=== PATIENT | male | born 1965 | race Caucasian/White ===

== ENCOUNTER 2022-11-03 18:31 | Inpatient (IN) | payer MEDICAID ==
[~2022-11-03] VITALS: Ht 180.3 cm; Wt 74.4 kg
[2022-11-03 19:22] VITALS: BP_SYST 156
--- NOTE | 2022-11-03 19:28 | NUR ---
Patient triaged and placed in waiting room. VSS and patient appears in no acute distress at this time. Accompanied by FAMILY, awaiting available bed, and MD notified of need for MSE.
--- NOTE | 2022-11-03 20:35 | NUR ---
ER MD Marlow at bedside.
--- NOTE | 2022-11-03 20:35 | NUR ---
Patient to ER bed JUAN to gown for evaluation. Side rails up. Report given to ODESSA NGUYEN.
--- NOTE | 2022-11-03 20:40 | NUR ---
Received report from PATRICK Lyon; assuming patient cares at this time.
[2022-11-03] MEDS ORDERED: MORPHINE 4 MG INJ. 4 MG/ML VIAL IVP ONE ×2 (20:45→22:15)
[2022-11-03] MEDS ORDERED: ONDANSETRON HCL 4 MG/2 ML VIAL IVP ONE (20:45)
--- NOTE | 2022-11-03 20:50 | NUR ---
Patient presents to ED from home with c/o left sided inguinal hernia [id number]. Patient reports pain 10/10 at this time. Patient A/Ox4, VSS, ambulatory, resp even and unlabored. Patient is a Swedish speaker. Patient states "I've had this hernia for about 8 months and it's been hurting but today was much worse. I went to my doctor today and he told me to come to the emergency room because of the pain."Nad noted at this time. ER MD Fitzpatrick made aware.
--- NOTE | 2022-11-03 21:05 | NUR ---
# 20 gauge angiocath placed to right wrist. Use of asceptic technique. Opsite placed over site. Blood return noted. Flushed with 10 cc of normal saline. No evidence of infiltration noted. Patient tolerated well.
--- NOTE | 2022-11-03 21:10 | NUR ---
Lab at bedside.
[2022-11-03 21:24] LABS: BASOPHILS % (AUTO) 0.4 % (0.0-2.0); EOSINOPHILS # (AUTO) 0.1 K/uL (0.0-0.4); EOSINOPHILS % (AUTO) 1.2 % (0.0-4.0); HEMOGLOBIN 14.3 g/dL (14.0-18.0); LYMPHOCYTES # (AUTO) 1.7 K/uL (1.0-5.5); LYMPHOCYTES % (AUTO) 30.9 % (20.5-51.5); MEAN CORPUSCULAR HEMOGLOBIN 31 pg (27-31); MEAN CORPUSCULAR HGB CONC 34 % (32-36); MEAN CORPUSCULAR VOLUME 91 fL (79.0-98.0); MONOCYTES # (AUTO) 0.5 K/uL (0.0-1.0); MONOCYTES % (AUTO) 9.4 % (1.7-9.3); NEUTROPHILS # (AUTO) 3.2 K/uL (1.8-7.7); NEUTROPHILS % (AUTO) 58.1 % (40.0-70.0); PLATELET COUNT (AUTO) 230 K/uL (130-430); RED CELL DISTRIBUTION WIDTH 12.8 % (9.0-15.0); WHITE BLOOD COUNT (AUTO) 5.5 K/uL (4.8-10.8)
[2022-11-03] MEDS ORDERED: IOHEXOL 350 mgI/mL, 150 ML INFUS..BTL IV ONE (21:25)
--- NOTE | 2022-11-03 21:41 | NUR ---
Patient taken to CT via gurney; accompanied by radiology.
[2022-11-03 21:48] LABS: CALCIUM 8.9 mg/dL (8.4-11.0); CREATININE 0.95 mg/dL (0.55-1.30)
[2022-11-03 21:55] LABS: ALBUMIN 4.1 g/dL (3.4-4.8); TOTAL BILIRUBIN 0.5 mg/dL (0.0-1.0)
--- NOTE | 2022-11-03 22:00 | NUR ---
Patient back from CT via gurney; accompanied by radiology.
--- NOTE | 2022-11-03 23:38 | NUR ---
Patient resting in bed with safety precautions in place. Nad noted at this time.
[2022-11-04] MEDS ORDERED: cefTRIAXone 1 GM in D5W 50 ML IV ONE (00:30)
[2022-11-04] MEDS ORDERED: cefTRIAXone 1 GM VIAL ONE (01:28)
--- NOTE | 2022-11-04 01:47 | NUR ---
Med rec done at this time. Per patient he does not take any medications at this time.
--- NOTE | 2022-11-04 02:09 | NUR ---
Report given to PATRICK Caceres; assuming patient cares at this time.
[2022-11-04] MEDS ORDERED: POTASSIUM CHLORIDE 20 MEQ TAB.PRT.SR PO PRN (02:15)
[2022-11-04] MEDS ORDERED: MAGNESIUM SULFATE 50 ML IV PRN (02:15)
[2022-11-04] MEDS ORDERED: ONDANSETRON HCL 4 MG/2 ML VIAL IVP PRN ×2 (02:15→21:00)
[2022-11-04] MEDS ORDERED: DOCUSATE SODIUM 100 MG CAPSULE PO PRN (02:15)
[2022-11-04] MEDS ORDERED: MUPIROCIN 2% TOPICAL OINTMENT 22 GM NS PRN (02:15)
[2022-11-04] MEDS ORDERED: ACETAMINOPHEN 325 MG TABLET PO PRN (02:15)
[2022-11-04] MEDS ORDERED: MORPHINE 2 MG/ML INJ. SYRINGE IVP PRN (02:15)
[2022-11-04] MEDS: NACL 0.9% 1,000 ML IV SCH ×3 (02:30→23:31)
--- NOTE | 2022-11-04 02:34 | NUR ---
Admit bed requested Patient will be admitted to care of . Admitted to MED SURG unit. Diagnosis POSSIBLE INCARCERATED HERNIA Inpatient (Yes or No) YES Observation (Yes or No) NO Orientation concerns or request close to nursing station (Yes or No) NO Covid Status NEGATIVE On vent or bipap NO Isolation requirements NO Needs a sitter NO From Home (Yes or if No enter name of facility) YES Requires Dialysis (Yes or No) NO Med Rec Completed (Yes of No) YES BY NURSE SAXENA(NO ACTIVE HOME MEDICATION)
--- NOTE | 2022-11-04 07:20 | NUR ---
Received report from outgoing nurse PATRICK Caceres. Received pt awake and alert, no s/s of discomfort noted. Pt has a 20g right hand, patent and intact, no s/s of infiltration noted. Vitals taken.
[2022-11-04] MEDS ORDERED: IBUP-1970 PO (08:03)
[2022-11-04] MEDS ORDERED: ALPH1TAB (08:07)
--- NOTE | 2022-11-04 08:44 | NUR ---
Patient will be admitted to care of Dr White. Admitted to MS unit. Will go to room 126A. Belongings list completed. Complete and up to date summary report printed. SBAR report to be given at bedside with opportunity for questions.
[2022-11-04] MEDS: MORPHINE 2 MG/ML INJ. SYRINGE IVP PRN ×2 (12:36→17:06)
[2022-11-04 16:20] VITALS: BP_SYST 156
[2022-11-04] MEDS ORDERED: FLU VACC QS2022-23(6MOS UP)/PF 0.5 ML/SYR SYRINGE I.M. PRN (16:45)
[2022-11-04] MEDS ORDERED: LR 1,000 ML IV.SOLN IV ONE (18:00)
[2022-11-04] MEDS ORDERED: NS IRRIG SOLN 1000 ML IR ONE (18:00)
[2022-11-04] MEDS ORDERED: GLYCOPYRROLATE 0.2 MG/ML VIAL ONE (18:00)
[2022-11-04] MEDS ORDERED: CEFAZOLIN 2 GM IVPB PREMIX 50 ML IV ONE (18:00)
[2022-11-04] MEDS ORDERED: BUPIVACAINE /EPINEPHRINE/PF 0.5% 30 ML VIAL INJ ONE (18:00)
[2022-11-04] MEDS ORDERED: SEVOFLURANE 15 MIN GAS INH ONE (18:00)
[2022-11-04] MEDS ORDERED: KETOROLAC TROMETHAMINE 30 MG VIAL ONE (18:00)
[2022-11-04] MEDS ORDERED: fentaNYL CITRATE/PF 100 MCG/2 ML AMP ONE ×2 (18:00→20:36)
[2022-11-04] MEDS ORDERED: ROCURONIUM BROMIDE 10 MG/ML (ZEMURON) ONE (18:00)
[2022-11-04] MEDS ORDERED: PHENYLEPHRINE HCL 10 MG/ML VIAL (NEOSYNEPHRINE) ONE (18:00)
[2022-11-04] MEDS ORDERED: ONDANSETRON HCL 4 MG/2 ML VIAL ONE (18:00)
[2022-11-04] MEDS ORDERED: PROPOFOL 200MG/ 20ML VIAL (DIPRIVAN) IV ONE (18:00)
[2022-11-04 20:00] LABS: INR 1.2 (0.80-1.20); PROTHROMBIN TIME 12.1 SECS (9.5-12.5)
[2022-11-04 20:01] LABS: BILIRUBIN,URINE NEGATIVE (NEGATIVE); BLOOD, URINE NEGATIVE (NEGATIVE); CLARITY/URINE CLEAR (CLEAR); COLOR,URINE YELLOW (YELLOW); GLUCOSE,URINE NEGATIVE (NEGATIVE); KETONES,URINE TRACE (NEGATIVE); LEUKOCYTE ESTERASE ,URINE NEGATIVE (NEGATIVE); NITRITE, URINE NEGATIVE (NEGATIVE); PROTEIN URINE NEGATIVE (NEGATIVE); UROBILINOGEN,URINE 0.2 (0.2-1.0)
[2022-11-04] MEDS ORDERED: METOCLOPRAMIDE HCL 10 MG/2 ML VIAL IVP PRN (21:00)
[2022-11-04] MEDS ORDERED: fentaNYL CITRATE/PF 100 MCG/2 ML AMP IVP PRN ×2 (21:00)
--- NOTE | 2022-11-04 23:00 | NUR ---
CONSULTATION FOR DR KUNZ FOR CONSULT OF EVALUATE FOR SURGERY AND INCARCERATED HERNIA ORDER BY DR NAE KUNZ IS AWARE AND HAS CAME TO SEE PATIENT
--- NOTE | 2022-11-04 23:08 | NUR ---
PT RECEIVED IN ROOM, S/P LEFT INGUINAL REPAIR. SURGICAL SITE INTACT CLEAN AND DRY. PT CURRENTLY DENIES ANY PAIN. CURRENTLY ON 2L VIA NC, WITH 98% SATURATION
[2022-11-05] VITALS (9 sets, daily range): BP systolic 122–148
--- NOTE | 2022-11-05 05:32 | NUR ---
pt resting in bed, adequate urine output. continued use of IS reinforced. no acute distress noted
--- NOTE | 2022-11-05 08:00 | NUR ---
OPENING NOTES PATIENT IS AOX4. NO SS OF DISTRESS NOTED. BREATHING IS EVEN AND NONLABORED, ON 2 L O2 VIA NC. NO SOB NOTED. VITAL SIGNS OBTAINED, DOCUMENTED. IV APPEARS TO BE PATENT. NO REDDENS AND OR SWELLING. IVF RUNNING. PATIENT DENIES PAIN. PATIENT IS EATING BREAKFAST. BED IS LOCKED, ALARM ON, AND AT LOWEST POSITION. CALL LIGHT WITHIN REACH.
[2022-11-05 10:11] LABS: BASOPHILS % (AUTO) 0.3 % (0.0-2.0); EOSINOPHILS # (AUTO) 0.1 K/uL (0.0-0.4); EOSINOPHILS % (AUTO) 0.8 % (0.0-4.0); HEMATOCRIT 39.4 % (36-54); HEMOGLOBIN 13.3 g/dL (14.0-18.0); LYMPHOCYTES # (AUTO) 0.8 K/uL (1.0-5.5); LYMPHOCYTES % (AUTO) 12.7 % (20.5-51.5); MEAN CORPUSCULAR HEMOGLOBIN 31 pg (27-31); MEAN CORPUSCULAR HGB CONC 34 % (32-36); MEAN CORPUSCULAR VOLUME 92 fL (79.0-98.0); MONOCYTES # (AUTO) 0.5 K/uL (0.0-1.0); NEUTROPHILS # (AUTO) 5.1 K/uL (1.8-7.7); NEUTROPHILS % (AUTO) 78.2 % (40.0-70.0); PLATELET COUNT (AUTO) 170 K/uL (130-430); RED BLOOD CELL COUNT(AUTO) 4.27 MIL/uL (4.2-6.2); RED CELL DISTRIBUTION WIDTH 12.7 % (9.0-15.0); WHITE BLOOD COUNT (AUTO) 6.6 K/uL (4.8-10.8)
[2022-11-05 10:34] LABS: CREATININE 0.77 mg/dL (0.55-1.30)
[2022-11-05] MEDS: DOCUSATE SODIUM 250 MG CAPSULE PO SCH ×2 (11:00→20:40)
[2022-11-05] MEDS: NACL 0.9% 1,000 ML IV SCH (11:01)
[2022-11-05] MEDS: traMADol HCL HCL 50 MG TABLET (ULTRAM) PO PRN ×2 (11:09→16:58)
--- NOTE | 2022-11-05 12:00 | NUR ---
NOTES PATIENT IS EATING LUNCH. NO SS OF DISTRESS NOTED. DENIES PAIN. PATIENT IS STABLE AT THIS TIME. ALL SAFETY PRECAUTIONS IN PLACE AND CALL LIGHT WITHIN REACH.
--- NOTE | 2022-11-05 15:45 | NUR ---
NOTES PATIENT AMBULATING WITH WALKER. DENIES SEVERE PAIN. TOLERATING WELL. NO SOB NOTED. SAFETY PRECAUTIONS IN PLACE AND CALL LIGHT WITHIN REACH.
[2022-11-05] MEDS ORDERED: BISACODYL 5 MG TABLET.DR (DULCOLAX) PO ONE (16:15)
--- NOTE | 2022-11-05 17:11 | NUR ---
NOTES PATIENT REQUEST PAIN MEDICATION. NEW IV INSERTED 22 G TO LFA. PATIENT STATED WANTED TO CHANGE IV LOCATIONS. BLOOD RETURN. FLUSHES WELL. PATENT.SAFETY PRECAUTIONS IN PLACE AND CALL LIGHT WITHIN REACH. FAMILY AT BEDSIDE.
--- NOTE | 2022-11-05 19:25 | NUR ---
CLOSING NOTES PATIENT FINISHED EATING DINNER. NO SS OF DISTRESS NOTED. BREATHING IS EVEN AND NONLABORED, ON ROOM AIR. NO SOB NOTED. AMBULATING WITH WALKER IN ROOM. NO FACIAL GRIMACE NOTED. IV PATENT. DENIES PAIN. BED IS LOCKED, ALARM ACTIVE, AND AT LOWEST POSITION. CALL LIGHT WITHIN REACH.PATIENT IS STABLE AND ALL NEEDS MET. REPORT GIVEN TO PATRICK LLOYD.
--- NOTE | 2022-11-06 00:52 | NUR ---
pt resting in bed, no acute distress noted. pt was covered with 4 units of insulin for bs of 204. will continue to monitor.
[2022-11-06 07:10] LABS: CALCIUM 8.2 mg/dL (8.4-11.0); CREATININE 0.83 mg/dL (0.55-1.30)
[2022-11-06 07:36] LABS: BASOPHILS % (AUTO) 0.1 % (0.0-2.0); EOSINOPHILS % (AUTO) 0.3 % (0.0-4.0); HEMATOCRIT 38.6 % (36-54); HEMOGLOBIN 13.3 g/dL (14.0-18.0); LYMPHOCYTES # (AUTO) 1.2 K/uL (1.0-5.5); LYMPHOCYTES % (AUTO) 15.4 % (20.5-51.5); MEAN CORPUSCULAR HEMOGLOBIN 32 pg (27-31); MEAN CORPUSCULAR HGB CONC 35 % (32-36); MEAN CORPUSCULAR VOLUME 91 fL (79.0-98.0); MONOCYTES # (AUTO) 0.9 K/uL (0.0-1.0); MONOCYTES % (AUTO) 12.2 % (1.7-9.3); NEUTROPHILS # (AUTO) 5.5 K/uL (1.8-7.7); PLATELET COUNT (AUTO) 174 K/uL (130-430); RED BLOOD CELL COUNT(AUTO) 4.24 MIL/uL (4.2-6.2); RED CELL DISTRIBUTION WIDTH 12.7 % (9.0-15.0); WHITE BLOOD COUNT (AUTO) 7.7 K/uL (4.8-10.8)
--- NOTE | 2022-11-06 08:00 | NUR ---
INITIAL NOTE: Received Patient lying in bed, eyes close. Patient calm and cooperative. No s/s of acute distress noted. A/O x 4. No c/o pain. Vital signs WNL. 22 gauge IV to left forearm, saline lock. Patient assisted to reposition in bed and prepare for breakfast. Clean and dry. White board updated with current information. Bed in low, locked position, bed alarm activated. Call light and personal items within reach.
[2022-11-06 08:18] VITALS: BP_SYST 116
[2022-11-06] MEDS: DOCUSATE SODIUM 250 MG CAPSULE PO SCH (09:15)
--- NOTE | 2022-11-06 09:15 | NUR ---
Administered Patient's AM medications. Flushed IV, patent. No pain, signs of infection or infiltration noted at IV site. Incentive spirometer present at bedside. Patient performed IS breathing exercises while Nurse present. Bilateral SCDs present. Removed for Patient to use restroom with aid of walker. Call light within reach.
[2022-11-06] MEDS ORDERED: TRAM50TA2 PO (09:19)
[2022-11-06 12:12] VITALS: BP_SYST 148
[2022-11-06 12:15] VITALS: BP_SYST 148
--- NOTE | 2022-11-06 12:50 | NUR ---
DISCHARGE NOTE: Patient given medication reconciliation form and D/C instructions. Exit Care provided. Patient verbalized understanding. MD discussed with patient the results and treatment provided. Ambulatory with steady gait for discharge to home. Patient in stable condition, ID band removed. IV catheter removed, intact and dressing applied, no active bleeding. Rx given. Patient educated on pain management. Administered flu vaccine to All belongings sent with patient. Addendum: 11/06/22 at 1346 by Melanie Casanova LVN DISCHARGE NOTE: Patient given medication reconciliation form and D/C instructions. Exit Care provided. Patient verbalized understanding. MD discussed with patient the results and treatment provided. Ambulatory with steady gait for discharge to home. Patient in stable condition, ID band removed. IV catheter removed, intact and dressing applied, no active bleeding. Rx given. Patient educated on pain management. Administered flu vaccine to patient. lot number [id number]. expires 02/17/23. All belongings sent with patient.
[2022-11-09 13:07] LABS: HEPATITIS A AB, IgM Negative (Negative); HEPATITIS B CORE AB, IgM Negative (Negative); HEPATITIS B SURFACE AG Negative (Negative)
== END 2022-11-06 12:50 | disposition home or self-care (01) | DRG 228 ==
LOC: SED 18:31 → SMU 11-04 02:04
PROVIDERS: ADMIT Family Medicine; ATTEND Family Medicine
PROC: 0YU60JZ Supplement Left Inguinal Region with Synthetic Substitute, Open Approach (ICD-10-PCS; principal; 2022-11-04 20:00)
DX: K40.30 Unilateral inguinal hernia, with obstruction, without gangrene, not specified as recurrent (principal); D17.9 Benign lipomatous neoplasm, unspecified; Z20.822 Contact with and (suspected) exposure to COVID-19; Z79.1 Long term (current) use of non-steroidal anti-inflammatories (NSAID); Z79.899 Other long term (current) drug therapy
CPT/HCPCS: 36415; 71045; 76376; 80048; 80053; 80074; 81003; 83690; 83735; 85025; 85610-TC; 85730-TC; 87040; 87081; 88302; 93005; 94010; 96374; 96375; 96376; 99285; C1781; J0690; J0696; J1885; J1956; J2270; J2370; J2405; J2704; J3010; J3490; J7120; Q9967